=== PATIENT | female | born 1995 | race Caucasian/White ===

== ENCOUNTER 2018-03-17 01:31 | Emergency (ER) | payer MEDICAID ==
[~2018-03-17] VITALS: Ht 154.9 cm; Wt 70.5 kg
[2018-03-17 01:49] VITALS: Ht 154.9 cm; Wt 70.5 kg
[2018-03-17 05:00] VITALS: BP 125/72
== END 2018-03-17 05:00 | disposition home or self-care (01) ==
LOC: ED 01:31
DX: S01.511A Laceration without foreign body of lip, initial encounter (principal); J45.909 Unspecified asthma, uncomplicated; W54.0XXA Bitten by dog, initial encounter; Y93.89 Activity, other specified; Y92.89 Other specified places as the place of occurrence of the external cause; Y99.8 Other external cause status
CPT/HCPCS: 90715; J2001

== ENCOUNTER 2018-03-22 17:38 | Emergency (ER) | payer MEDICAID ==
[~2018-03-22] VITALS: Ht 154.9 cm; Wt 69.4 kg
[2018-03-22 17:52] VITALS: BP 123/72; Ht 154.9 cm; Wt 69.4 kg
== END 2018-03-22 18:23 | disposition home or self-care (01) ==
LOC: ED 17:38
DX: S01.511D Laceration without foreign body of lip, subsequent encounter (principal); J45.909 Unspecified asthma, uncomplicated; W54.0XXD Bitten by dog, subsequent encounter

== ENCOUNTER 2018-04-01 23:28 | Emergency (ER) | payer MEDICAID ==
[~2018-04-01] VITALS: Ht 154.9 cm; Wt 70.3 kg
[2018-04-01 23:32] VITALS: BP 120/75; Ht 154.9 cm; Wt 70.3 kg
== END 2018-04-02 01:27 | disposition left against medical advice (07) ==
LOC: ED 23:28
DX: Z53.21 Procedure and treatment not carried out due to patient leaving prior to being seen by health care provider (principal)

== ENCOUNTER 2018-04-04 18:41 | Emergency (ER) | payer MEDICAID ==
[~2018-04-04] VITALS: Ht 154.9 cm; Wt 69.1 kg
[2018-04-04 19:07] VITALS: BP 119/83; Ht 154.9 cm; Wt 69.1 kg
== END 2018-04-04 20:34 | disposition home or self-care (01) ==
LOC: ED 18:41
DX: N39.0 Urinary tract infection, site not specified (principal); G43.909 Migraine, unspecified, not intractable, without status migrainosus; J45.909 Unspecified asthma, uncomplicated